=== PATIENT | male | born 1945 | race Hispanic/Latino ===

== ENCOUNTER 2019-08-25 12:10 | Day surgery (SDC) | payer MEDICARE ==
--- NOTE | 2019-08-25 12:50 | Anesthesia Day of Surgery ---
Anesthesia Day of Surgery - Day of Surgery Patient Examined: Yes Patient H&P Reviewed: Yes Patient is NPO: Yes
--- NOTE | 2019-08-25 12:54 | Anesthesia Consultation ---
Anesthesia Consult and Med Hx Date of service: 08/25/19 - Airway Anesthetic Teeth Evaluation: Good, Crowns ROM Head & Neck: Adequate Mental/Hyoid Distance: Adequate Mallampati Class: Class II Intubation Access Assessment: Probably Good - Pre-Operative Health Status ASA Pre-Surgery Classification: ASA2 Proposed Anesthetic Plan: General - Cardiovascular System Hx Hypertension: No (States can climb two flights of stairs) Hx Cardia Arrhythmia: Yes (Tachy-SVT) - Gastrointestinal Hx Gastroesophageal Reflux Disease: Yes
[2019-08-25] MEDS ORDERED: LACTATED RINGERS 1,000 ML ONE (13:20)
[2019-08-25] MEDS ORDERED: ceFAZolin/STERILE WATER 2 GM/20 ML SYRINGE IV NR (14:00)
[2019-08-25] MEDS ORDERED: LACTATED RINGERS 1,000 ML IV SCH (14:00)
[2019-08-25] MEDS ORDERED: dexAMETHasone 20 MG/5 ML VIAL ONE (15:26)
[2019-08-25] MEDS ORDERED: PROPOFOL 200 MG/20 ML VIAL IV ONE (15:26)
[2019-08-25] MEDS ORDERED: fentaNYL 100 MCG/2 ML INJ ONE (15:26)
[2019-08-25] MEDS ORDERED: LIDOCAINE MPF (2%) 20 MG/1 ML VIAL 5 ML ONE (15:26)
[2019-08-25] MEDS ORDERED: ONDANSETRON 4 MG/2 ML INJ ONE ×2 (15:26→17:02)
[2019-08-25] MEDS ORDERED: PHENYLEPHRINE/NS 1,000 MCG/10 ML SYRINGE (OR USE) IV ONE (15:27)
--- NOTE | 2019-08-25 16:46 | Post Operative Note ---
Date of procedure: 08/25/19 Pre-op diagnosis: rt ureteral stone Post-op diagnosis: same Procedure: cysto, rt uretersocopy, basket stone ,stent with external string Anesthesia: BIANCA Surgeon: CAYLA BARRERA Condition: stable Disposition: PACU
[2019-08-25 17:27] VITALS: BP 134/71
--- NOTE | 2019-08-25 17:38 | Fluoroscopy Report ---
9 fluoroscopic images submitted Indication: Intraoperative localization Impression: 9 images of the abdomen were submitted for documentation purposes with radiology involve ment. Bilateral retrograde pyelograms were performed with right-sided stone removal and stent placem ent. Please refer to operative for complete details. Approximately 15 mL of Omnipaque 300 was utilize d for this exam. Fluoroscopic time: 44 seconds Signer Name: Ntae Ornelas MD Signed: 08/25/2019 5:34 PM Workstation Name: [id number]
[2019-08-25] MEDS ORDERED: ONDANSETRON 4 MG/2 ML INJ IV ONE (18:00)
--- NOTE | 2019-08-25 18:33 | Operative Report ---
PREOPERATIVE DIAGNOSIS: Right distal ureteral stone. POSTOPERATIVE DIAGNOSIS: Right distal ureteral stone. PROCEDURE: Cystoscopy, bilateral retrograde pyelograms, right ureteroscopy, basket stone extraction, double J stent (6-Pu[place]ican 28 cm with an external string). SURGEON: Cyril Shook MD ANESTHESIA: General. ESTIMATED BLOOD LOSS: Minimal. FLUIDS: Crystalloid. COMPLICATIONS: No complications. INDICATIONS: This patient is a 73-year-old gentleman seen in the office with right flank pain. He had CT abdomen and pelvis at [facility] and was found to have a 4 mm distal stone. He had persistent pain and nausea. Discussed options. They agreed to proceed with surgical intervention. DESCRIPTION OF PROCEDURE: The patient was taken to the operative suite, placed in a supine position. After adequate general anesthesia, placed in a dorsal lithotomy position, prepped and draped in a sterile fashion. Pancystourethroscopy was performed with 22-[place] Storz cystoscope, no urethral abnormalities. His prostate displayed some mild trilobar obstruction. Bladder diffuse trabeculation, no tumors or stones. Bilateral retrograde pyelograms were obtained with an 8-[place] Sutton catheter and 8 mL of contrast. No filling defects or obstruction on the left. He did have some J hooking on the distal ureter. On the right side, you could see a filling defect in the distal ureter as well as J hooking. Two 0.035 Glidewire were placed in the right collecting system. Rigid ureteroscopy was performed. He had a mild distal ureteral stricture. The scope could traverse the stricture and passive dilation was performed. Several fragments could be appreciated. I guess a cluster of about 4-5 mm. Three [place] Bailey basket was used to remove the fragments. Ureteroscopy up to the renal pelvis, no other stones could be appreciated. A 6-[place] 28 cm double-J stent with an external string was left indwelling. Rectal exam was benign. He was extubated and taken to recovery room in stable condition. He will go home on [place] [place]. He has a history of a lower back pain. He has problems urinating. We will place a Borja. JOB# [id number] [facility]
--- NOTE | 2019-08-26 08:43 | Post Anesthesia Evaluation ---
- Post Anesthesia Evaluation Patient Participated: Yes Airway Patent: Yes Stable Respiratory Function: Yes Nausea/Vomiting: No Temp > 96.8F: Yes Pain Manageable: Yes Adequeate Hydration: Yes Anesthesia Complications: No Block Receding Appropriately: Not Applicable Patient on Ventilator: No
== END 2019-08-25 18:35 | disposition home or self-care (01) ==
LOC: OR 12:10
PROVIDERS: ATTEND Urology
DX: N20.1 Calculus of ureter (principal); N13.5 Crossing vessel and stricture of ureter without hydronephrosis; I42.9 Cardiomyopathy, unspecified; K21.9 Gastro-esophageal reflux disease without esophagitis; Z85.528 Personal history of other malignant neoplasm of kidney; Z98.890 Other specified postprocedural states; Z79.899 Other long term (current) drug therapy; Z88.8 Allergy status to other drugs, medicaments and biological substances
CPT/HCPCS: 52332; 52352; 74420; C1758; C1769; C2617; J0690; J1100; J2370; J2405; J2704; J3010; J7120; Q9967